=== PATIENT | female | born 1975 | race Caucasian/White ===

== ENCOUNTER 2023-09-11 16:52 | Observation (INO) | payer BC, SELFPAY ==
[2023-09-11] VITALS (7 sets, daily range): BP systolic 120–130; BP diastolic 76–85; PULSE 84–114; RESP 13–21; TEMP 36.6–36.8; O2SAT 96–97; BMI 57.1
--- NOTE | 2023-09-11 17:08 | PC.NURSE ---
Patient is a direct admit from [facility]. Upon arrival she was on a heparin drip. This facility continued the heparin drip until further orders from Dr. Juarez or other hospitalist. Dr. Juarez notified the patient was on the floor at 1656 and he instructed nurse to get an EKG. Patient's vitals WNL. She is resting comfortably with at bedside.
--- NOTE | 2023-09-11 17:12 | ECG_ITS ---
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 Interpretive Statements NAME OF STUDY: LEXISCAN SESTAMIBI STRESS TEST INDICATION: [NSTEMI, ] [id number]
--- NOTE | 2023-09-11 17:29 | PM.HP ---
Providers/Chief Complaint Admitting Physician: Elie Juarez MD Chief Complaint: chest pain and elevated treponins History of Present Illness Lanie Beth is a 48 year old female with no significant past medical history, who presents to [facility] due to complaints of chest pain, lightheadedness, dizziness, diaphoresis,. 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 Patient presented to [facility], in which they did a workup, EKG no acute ST-T wave changes, her troponin was 18, positive delta troponin she does report episode of chest discomfort while she was in emergency room Nitropatch was placed, her white blood cell count was 15,000, no acute source of infection was identified, she denies any dysuria, hematuria, no cough, they had done a CT of the head, no acute findings CTA head and neck given her complaints of headache, dizziness which was within normal limits. Her D-dimer was found to be above 8, Dr. Thomas from [facility] call me for transfer, for concerns for elevated troponin. I had requested that Dr. 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 Dr. Thomas had discussed with radiology patient had a CTA head and neck, which also picked up pulmonary arteries, there is no radiographic evidence of PE, however it was not a dedicated CT a of the chest. She was on room air, chest pain-free, normotensive, requested transfer to [facility] for cardiac evaluation. She tells me that she does have extensive family history of CAD in her father, no recent chest pain, she is morbidly obese, no smoking, no drug use, intermittent alcohol use, no calf pain, calf swelling, hemoptysis, received aspirin via ems Review of Systems Const: Reports: fatigue and malaise; Denies: fever(s) Card: Reports: chest pain Resp: Denies: dyspnea GI: Reports: abdominal pain : Denies: flank pain PFSH Acute PFSH: Medical History (Updated 09/11/23 @ 17:36 by Elie Juarez MD) History of use of contraceptive intrauterine device (IUD) Surgical History (Updated 09/11/23 @ 17:34 by Elie Juarez MD) History of cholecystectomy Family History (Updated 09/11/23 @ 17:34 by Elie Juarez MD) Father CAD (coronary artery disease) Social History (Updated 09/11/23 @ 17:34 by Elie Juarez MD) Smoking and tobacco/nicotine status: never used tobacco/nicotine Alcohol intake: current Alcohol intake frequency: few times a month Substance/Drug Use: never Physical Exam Const: COMMON NORMALS: no acute distress and patient oriented x3 HENMT: COMMON NORMALS: normocephalic HEAD & SCALP: normocephalic Eye: COMMON NORMALS: Equal, round and reactive pupils present Neck/C-Spine: COMMON NORMALS: no JVD Resp: COMMON NORMALS: normal respiratory effort, No retractions, No use of accessory muscles and clear to auscultation bilaterally AUSCULTATION: clear to auscultation bilaterally Cardio: COMMON NORMALS: no JVD, regular rate, regular rhythm, S1 normal heart sound present and S2 normal heart sound present RATE: regular rate RHYTHM: regular rhythm HEART SOUNDS: S1 normal heart sound present and S2 normal heart sound present GI: COMMON NORMALS: Normal to inspection, nondistended, normoactive bowel sounds present, Soft to palpation and non-tender Extremity: COMMON NORMALS: no calf tenderness and no pedal edema Neuro: COMMON NORMALS: patient oriented x3, CN's II-XII intact bilaterally and moves all extremities Psych: COMMON NORMALS: mental status grossly normal A&P Assessment and plan (1) NSTEMI (non-ST elevated myocardial infarction): (2) Leukocytosis: (3) Chest pain: (4) Pre-syncope: Plan Chest pain ? NSTEMI ? Plan ? Aspirin ? Statin ? Continue heparin drip ? Repeat troponin series, telemetry monitoring ? Cardiac echo -N.p.o. midnight, for stress test tomorrow ? 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 Repeat UA, Inflammatory markers Presyncope, Monitor closely Attestations Medical Necessity Statement*: Patient requires hospitalization, outpatient observation, for chest pain, presyncope, leukocytosis, NSTEMI Diagnoses NSTEMI (non-ST elevated myocardial infarction) I21.4 Leukocytosis D72.829 Chest pain R07.9 Pre-syncope R55
--- NOTE | 2023-09-11 17:33 | PC.NURSE ---
Per Dr. Juarez, patient to be moved to a room where can comfortably spend the night. Patient moved to [facility]2 and can use vacant bed.
[2023-09-11] MEDS: morphine 4 mg/mL SDV 1 mL 2 MG IVP ×2 (17:38→22:14)
[2023-09-11] MEDS: pantoprazole 40 mg SDV IVP (17:38)
--- NOTE | 2023-09-11 18:10 | ECG_ITS ---
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 Measurements Intervals [place] Rate: 84 P: 44 CT: 144 QRS: 11 QRSD: 89 T: 31 QT: 378 QTc: 448 Interpretive Statements SINUS RHYTHM No previous ECG available for comparison Electronically Signed On 09-12-2023 9:21:55 CDT by Keaton Bellamy M.D. [id number]
[2023-09-11 18:27] LABS: Lactic Sepsis W/Reflex 1.1 mmol/L (0.5-2.2)
[2023-09-11 18:28] LABS: Troponin(5th) Baseline 12 ng/L (0-10)
[2023-09-11 18:32] LABS: D Dimer 11.83 ug/mLFEU (0-0.59)
[2023-09-11 18:38] LABS: NT Pro B Type Natriuretic Pept 114 pg/mL (0-125); Thyroid Stimulating Hormone 1.24 uIU/mL (0.27-4.20)
[2023-09-11 19:40] LABS: C Reactive Protein 8.1 mg/L (0.0-4.9)
[2023-09-11 19:56] LABS: Estmated Average Glucose 91; Hemoglobin A1C 4.8 % (4.0-6.0)
[2023-09-11] MEDS: atorvastatin 40 mg Tablet PO (20:43)
[2023-09-11 20:55] LABS: Troponin 5 2HR 9.85 ng/L (0-10)
[2023-09-11 20:56] LABS: Troponin 5 2HR Delta -2.15 ABS# (0-10)
[2023-09-11 21:40] LABS: Amphetamines Screen Urine Negative (Negative); Barbiturates Screen Urine Negative (Negative); Benzodiazepines Screen Urine Negative (Negative); Cocaine Screen Urine Negative (Negative); Opiate Screen Urine Positive (Negative); PCP Screen Urine Negative (Negative); THC Screen Urine Negative (Negative)
[2023-09-11 21:46] LABS: Add Urine Microscopic? YES; Bilirubin Urine Neg (Negative); Blood Urine Neg (Negative); Glucose Urine UA Norm (Normal); Ketones Urine 1+ (Negative); Leukocyte Esterase Urine Negative (Negative); Nitrate Urine Negative (Negative); Protein Urine Trace (Negative); RBC Urine 0-4 /hpf (0-2); Specific Gravity, Urine 1.025 (1.005-1.030); Urine Appearance Cloudy (CLEAR); Urine Color Dark Yellow (Yellow); Urobilinogen Urine Neg (Negative); WBC Urine 0-4 /hpf (0-5); pH Urine 5 (5-7)
[2023-09-11 21:47] LABS: Bacteria Urine 2+ /hpf; Mucus Urine TRACE /hpf
[2023-09-11] MEDS: cyclobenzaprine 10 mg Tablet 5 MG PO (22:19)
--- NOTE | 2023-09-11 23:12 | ECG_ITS ---
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 Measurements Intervals [place] Rate: 90 P: 55 IN: 148 QRS: 15 QRSD: 89 T: 23 QT: 366 QTc: 448 Interpretive Statements SINUS RHYTHM Compared to ECG 09/11/2023 18:10:17 No significant changes Electronically Signed On 09-12-2023 9:25:04 CDT by Keaton Bellamy M.D. [id number]
[2023-09-12 00:46] LABS: Troponin 5 6HR 8.48 ng/L (0-10); Troponin 5 6HR Delta -3.52 ng/L (0-12)
[2023-09-12 01:27] LABS: Basophils # 0.1 10^3/uL (0.0-0.1); Basophils % 0.9 %; Eosinophils # 0.5 10^3/uL (0.0-0.8); Eosinophils % 4.9 %; Hematocrit 44.7 % (36-47); Lymphocytes # 2.3 10^3/uL (0.8-4.8); Lymphocytes % 24.7 %; Mean Corpuscular HGB Conc 33.1 g/dL (30-55); Mean Corpuscular Hemoglobin 29.8 pg (27-33); Mean Corpuscular Volume 89.9 fl (85-98); Monocytes # 0.5 10^3/uL (0.2-0.9); Monocytes % 5.5 %; Neutrophils # 5.96 10^3/uL (1.8-7.7); Neutrophils % 63.8 %; Nucleated Red Blood Cells % 0 %; Platelet Count 187 10^3/cmm (157-399); Red Blood Count 4.97 10^6/uL (3.85-5.65); Red Cell Distribution Width 13.1 % (12.1-15.1); White Blood Count 9.33 10^3/uL (3.29-11.43)
[2023-09-12 01:44] LABS: Anion Gap 13.1 (5-19); Blood Urea Nitrogen 12 mg/dL (6-20); Calcium 8.1 mg/dL (8.5-10.5); Carbon Dioxide 22 mmol/L (22-29); Chloride 108 mmol/L (98-107); Creatinine Clr Calc Pharmacy 132.7031; Glomerular Filtration Rate 75.9 mL/min (90-130); Glucose 119 mg/dL (65-115); Magnesium 1.8 mg/dL (1.7-2.3); Osmolality Calculated 289 mOsm/kg (285-295); Phosphorus 3.1 mg/dL (2.5-4.5); Potassium 4.1 mmol/L (3.5-5.1); Sodium 139 mmol/L (136-145)
[2023-09-12 01:50] LABS: Partial Thromboplastin Time 108.4 SECONDS (23.9-36.7)
[2023-09-12] MEDS: heparin drip 25,000 UNIT/500 ML PREMIX 30 UNIT IV (02:00)
[2023-09-12 04:00] VITALS: BP 115/76; PULSE 93; RESP 15; TEMP 36.8; O2SAT 97
[2023-09-12 05:43] VITALS: PULSE 98
--- NOTE | 2023-09-12 06:00 | USCV_ITS ---
Lanie Beth Age: 48 Gender: F : 1975 Exam Date: 09/12/2023 08:53 Ordering Phys: Elie Juarez MD Technologist: [place] [facility] [place]: pos d-dimer cp PROCEDURES: The venous duplex Doppler examination of both lower extremities was performed in the standard fashion. The following venous structures were evaluated: common femoral vein, profunda vein, proximal portion of the greater saphenous vein, superficial femoral vein, and the popliteal vein. FINDINGS: Normal 2-D Doppler and augmentation and compressibility throughout the lower extremity venous structures. Additional imaging through the proximal calf veins also reveals no thrombus. Limited evaluation of the greater saphenous vein is patent with no thrombus. CONCLUSIONS No DVT bilateral lower extremities. Dr. Cheryl Avery DO (Electronically Signed) Final Date: 12 September 2023 13:31 S
--- NOTE | 2023-09-12 06:00 | USCV_ITS ---
Lanie Beth Age: 48 Gender: F : 1975 Exam Date: 09/12/2023 08:28 Ordering Phys: Elie Juarez MD Technologist: Exam Location: [facility] [place] Indication: nstemi BP: 115 / 76 HR: 119 Rhythm: Sinus Technical Quality: Adequate MEASUREMENTS (Male / Female) Normal Values 2D ECHO LV Diastolic Diameter PLAX 4.6 cm 4.2 - 5.9 / 3.9 - 5.3 cm IVS Diastolic Thickness 1.2 cm 0.6 - 1.0 / 0.6 - 0.9 cm IVS Systolic Thickness 1.6 cm LVPW Diastolic Thickness 1.4 cm 0.6 - 1.0 / 0.6 - 0.9 cm LVPW Systolic Thickness 1.6 cm LV Ejection Fraction 2D Teich 69.2 % LV Ejection Fraction MOD 4C 55.9 % LV Ejection Fraction MOD 2C 59.3 % LV Ejection Fraction 2C AL 57.0 % RA Systolic Volume 4C AL 33.0 ml RA Systolic Volume 4C MOD 31.4 ml IVC Diameter 1.5 cm M-MODE LA Ao Ratio MM 1.5 AV Cusp Separation MM 2.4 cm DOPPLER AV Peak Velocity 159.0 cm/s LVOT Peak Velocity 104.0 cm/s MV Peak Velocity 111.0 cm/s MV Area PHT 5.4 cm squared Mitral E to A Ratio 1.0 TV Peak Velocity 98.0 cm/s TR Peak Velocity 107.0 cm/s TR Peak Gradient 4.6 mmHg TV Peak E Velocity 95.0 cm/s Right Atrial Pressure 3.0 mmHg Pulmonary Artery Systolic Pressu 7.6 mmHg PV Peak Velocity 111.0 cm/s FINDINGS Left Ventricle Left ventricle is normal size. LV systolic function is normal with EF of 55 to 60%. No regional wall motion abnormalities are seen. Right Ventricle Normal in size and function Right Atrium Normal in size Left Atrium Normal in size Mitral Valve Structurally normal mitral valve. Mild mitral regurgitation. Aortic Valve Structurally normal aortic valve. No significant stenosis or regurgitation. Tricuspid Valve Insufficient TR jet to evaluate RVSP. Pulmonic Valve Not well visualized Pericardium Normal Aorta Normal in size IVC Appears to be normal CONCLUSIONS LV systolic function is normal with EF of 55-60% Mild mitral regurgitation No comparison studies are available. Ralph Edgar MD (Electronically Signed) Final Date: 12 September 2023 16:40 S
--- NOTE | 2023-09-12 07:18 | PC.NURSE ---
still in Stress test dept
[2023-09-12] MEDS: regadenoson 0.4 Mg/5 ml Syringe IVP (07:28)
[2023-09-12 07:40] VITALS: BP 154/83; PULSE 92
[2023-09-12 08:00] VITALS: BP 147/84; PULSE 86; RESP 16; TEMP 36.8; O2SAT 94
[2023-09-12] MEDS: aspirin 81 mg EC Tablet PO (08:57)
[2023-09-12 09:07] LABS: Partial Thromboplastin Time 95.3 SECONDS (23.9-36.7)
[2023-09-12] MEDS: TRAMadol 50 mg Tablet PO (10:02)
--- NOTE | 2023-09-12 11:14 | CT_ITS ---
WS: [id number] CT CHEST ANGIOGRAPHY WITH REFORMATS HISTORY: elevated d dimer TECHNIQUE: Contiguous axial images are obtained through the chest during arterial injection of intrav enous contrast. Images are reconstructed to evaluate the pulmonary arteries. MIP imaging also reviewe d. All CT scans at [facility] use at least one of these dose optimization techniques: automat ed exposure control; mA and/or kV adjustment per patient size (includes targeted exams where dose is matched to clinical indication); or iterative reconstruction. CONTRAST: Omnipaque 350; 100 mL IV. DLP: 558.86 mGy.cm COMPARISON: None available. No pulmonary emboli identified. The distal branches of the pulmonary arteries are becoming more diffi cult to visualized. No central pulmonary emboli. No RIGHT heart strain. Normal size thoracic aorta. Mild enlargement of the LEFT heart chambers. No pericardial or pleural effusions. Mild hazy attenuati on throughout both lungs from poor inspiration. No pneumonia. No lymphadenopathy. No hiatal hernia. Hepatic steatosis in the visualized liver. No adrenal mass. Prior cholecystectomy. Surgical sutures a ssociated the stomach may be related to a prior bypass. Mild increase in thoracic kyphosis. CT/CT angio chest PE protcl [id number] IMPRESSION: 1. No pulmonary embolism. 2. No pneumonia. 3. Mild LEFT heart enlargement. 4. Prior cholecystectomy.
[2023-09-12 12:00] VITALS: PULSE 80
[2023-09-12] MEDS: iohexol 350 mg/mL 500 mL Btl (per mL) IV (12:15)
[2023-09-12] MEDS: sodium chloride 0.9% 1,000 ML 75 ML IV (12:23)
--- NOTE | 2023-09-12 12:35 | XRR_ITS ---
PROCEDURE INFORMATION: Exam: XR Left Shoulder Exam date and time: 09/12/2023 12:53 PM Age: 48 years old Clinical indication: Pain; Shoulder; Left; Additional info: L shoulder TECHNIQUE: Imaging protocol: Radiologic exam of the left shoulder. Views: 2 or more views. COMPARISON: CT angio chest PE protcl [id number] 09/12/2023 12:12 PM FINDINGS: Bones/joints: Moderate degenerative changes of the left acromioclavicular joint. Mild osteoarthritis of the left glenohumeral joint. No acute fracture, dislocation, or aggressive osseous lesion. Soft tissues: Visualized chest is unremarkable. No acute soft tissue findings. XR/XR shoulder LT min 2V* [id number] IMPRESSION: Mild osteoarthritis without acute skeletal pathology.
--- NOTE | 2023-09-12 12:42 | P.DS_ITS ---
Discharge Providers Date of Admission: 09/11/23 16:52 Date of Discharge: September 12, 2023 Attending Provider at Admission: Elie Juarez MD Attending Provider at Discharge: Elie Juarez MD Diagnoses at Discharge Discharge Diagnosis (1) NSTEMI (non-ST elevated myocardial infarction): Status: Acute (2) Leukocytosis: Status: Acute (3) Chest pain: Status: Acute (4) Pre-syncope: Status: Acute Reason for Visit Reason for Visit: chest pain and elevated [facility] Course Hospital Course Lanie Beth is a 48 year old female with no significant past medical history, who presents to [facility] due to complaints of chest pain, lightheadedness, dizziness, diaphoresis,. 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 Patient presented to [facility], in which they did a workup, EKG no acute ST-T wave changes, her troponin was 18, positive delta troponin she does report episode of chest discomfort while she was in emergency room Nitropatch was placed, her white blood cell count was 15,000, no acute source of infection was identified, she denies any dysuria, hematuria, no cough, they had done a CT of the head, no acute findings CTA head and neck given her complaints of headache, dizziness which was within normal limits. Her D-dimer was found to be above 8, Dr. Thomas from [facility] call me for transfer, for concerns for elevated troponin. I had requested that Dr. 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 Dr. Thomas had discussed with radiology patient had a CTA head and neck, which also picked up pulmonary arteries, there is no radiographic evidence of PE, however it was not a dedicated CT a of the chest. She was on room air, chest pain-free, normotensive, requested transfer to [facility] for cardiac evaluation. She tells me that she does have extensive family history of CAD in her father, no recent chest pain, she is morbidly obese, no smoking, no drug use, intermittent alcohol use, no calf pain, calf swelling, hemoptysis, received aspirin via ems Patient was admitted to [facility] for chest pain, no acute ST-T wave changes, no significant delta troponin stress test IMPRESSIONS 1. Small area of prior infarct seen in RCA territory. 2. LV systolic function is normal Ralph Edgar MD (Electronically Signed) Final Date: 12 September 2023 ? [address] angiogram was negative for PE -Discharged with a close follow-up with primary care provider as outpatient discharged on aspirin, statin, discussed weight loss, nitro as needed for chest pain, if any recurrent chest pain go to the emergency room Patient was found to have a thyroid nodule, needs to follow-up with ENT as outpatient Patient was found to have elevated blood pressures discharged on lisinopril for afterload reducing agent, follow-up with primary care provider as outpatient For her left shoulder pain, discharged on steroids, avoid NSAIDs given her history of gastric sleeve For her epigastric discomfort history of gastric sleeve history of NSAID use, discharged on Protonix, Carafate, follow-up with primary care provider as outpatient - You have a thyroid nodule you have a thyroid nodule, please follow-up with primary care provider for referral to ENT for biopsy -Discharged on lisinopril 5 mg daily, due to elevated blood pressure please follow-up with primary care provider for your blood pressure -Please continue aspirin, statin -Please follow-up with primary care provider for recheck blood pressure, heart rate, -For your left shoulder, please follow-up with your primary care provider take prednisone as prescribed -Please avoid ibuprofen or meloxicam or naproxen or any other NSAID -Please use prednisone for your shoulder pain but only short-term -Please follow-up with your primary care provider for further interventions for her shoulder pain -Continue Protonix, Carafate, for your epigastric discomfort, if you continue to have epigastric this comfort beyond a month discussed with primary care provider for considering EGD to look for gastric ulcers Physical Exam Const: COMMON NORMALS: no acute distress and patient oriented x3 Resp: COMMON NORMALS: normal respiratory effort, No retractions, No use of accessory muscles and clear to auscultation bilaterally AUSCULTATION: clear to auscultation bilaterally Cardio: COMMON NORMALS: regular rate, regular rhythm, S1 normal heart sound present and S2 normal heart sound present RATE: regular rate RHYTHM: regular rhythm HEART SOUNDS: S1 normal heart sound present and S2 normal heart sound present GI: COMMON NORMALS: Normal to inspection, nondistended, normoactive bowel sounds present and non-tender Extremity: COMMON NORMALS: no pedal edema Neuro: COMMON NORMALS: patient oriented x3 Psych: COMMON NORMALS: mental status grossly normal Discharge Data Studies Completed and Pending Completed Studies During Hospitalization Category Date Time Status CT angio chest PE protcl [id number] Stat Cat Scan 09/12/23 11:14 Completed Sestamibi Stress Test Request Routine Exams 09/11/23 17:12 Draft NM dafne perf SPECT r/s* [id number] Routine Nuc Med 09/12/23 17:12 Completed Pending at discharge Category Date Time Status XR shoulder LT min 2V* [id number] Stat Exams 09/12/23 12:35 [place] [id number] Routine Ultrasound 09/12/23 06:00 Taken CV. echo complete* [id number] Routine Ultrasound 09/12/23 06:00 Taken Radiology Impressions Chest CTA 09/12/23 11:14 IMPRESSION: 1. No pulmonary embolism. 2. No pneumonia. 3. Mild LEFT heart enlargement. 4. Prior cholecystectomy. Laboratory Results WBC 9.33 10^3/uL (3.29-11.43) 09/12/23 01:22 RBC 4.97 10^6/uL (3.85-5.65) 09/12/23 01:22 Hgb 14.80 g/dL (11.27-16.99) 09/12/23 01: Hct 44.7 % (36-47) 09/12/23 01:22 MCV 89.9 fl (85-98) 09/12/23 01:22 MCH 29.8 pg (27-33) 09/12/23 01: MCHC 33.1 g/dL (30-55) 09/12/23 01:22 RDW 13.1 % (12.1-15.1) 09/12/23 01:22 Plt Count 187 10^3/cmm (157-399) 09/12/23 01:22 MPV 10.0 fL (7.4-10.4) 09/12/23 01:22 Neut % (Auto) 63.8 % 09/12/23 01:22 Lymph % (Auto) 24.7 % 09/12/23 01:22 [place] % (Auto) 5.5 % 09/12/23 01:22 Eos % (Auto) 4.9 % 09/12/23 01:22 Baso % (Auto) 0.9 % 09/12/23 01:22 Neut # (Auto) 5.96 10^3/uL (1.8-7.7) 09/12/23 01:22 Lymph # (Auto) 2.3 10^3/uL (0.8-4.8) 09/12/23 01:22 [place] # (Auto) 0.5 10^3/uL (0.2-0.9) 09/12/23 01:22 Eos # (Auto) 0.5 10^3/uL (0.0-0.8) 09/12/23 01:22 Baso # (Auto) 0.1 10^3/uL (0.0-0.1) 09/12/23 01:22 Nucleated RBC % (auto) 0 % 09/12/23 01:22 Nucleated RBCs # 0.0 /100WBC 09/12/23 01:22 APTT 95.3 SECONDS (23.9-36.7) H 09/12/23 08:36 D-Dimer 11.83 ug/mLFEU (0-0.59) H 09/11/23 17:58 Sodium 139 mmol/L (136-145) 09/12/23 01:22 Potassium 4.1 mmol/L (3.5-5.1) 09/12/23 01:22 Chloride 108 mmol/L (98-107) H 09/12/23 01:22 Carbon Dioxide 22 mmol/L (22-29) 09/12/23 01:22 Anion Gap 13.1 (5-19) 09/12/23 01:22 BUN 12 mg/dL (6-20) 09/12/23 01:22 Creatinine 0.8 mg/dL (0.5-0.9) 09/12/23 01:22 GFR Calculation 75.9 mL/min (90-130) L 09/12/23 01:22 Glucose 119 mg/dL (65-115) H 09/12/23 01:22 Estimat Average Glucose 91 09/11/23 17:58 Hemoglobin A1c 4.8 % (4.0-6.0) 09/11/23 17:58 Calculated Osmolality 289 mOsm/kg (285-295) 09/12/23 01:22 Lactic Acid 1.1 mmol/L (0.5-2.2) 09/11/23 17:58 Calcium 8.1 mg/dL (8.5-10.5) L 09/12/23 01:22 Phosphorus 3.1 mg/dL (2.5-4.5) 09/12/23 01:22 Magnesium 1.8 mg/dL (1.7-2.3) 09/12/23 01:22 Troponin T Baseline 12 ng/L (0-10) H 09/11/23 17:58 Troponin T 120 Minute 9.85 ng/L (0-10) 09/11/23 20:13 Delta Troponin T -2.15 ABS# (0-10) L 09/11/23 20:13 Troponin T Hi Sens 6Hr 8.48 ng/L (0-10) 09/12/23 00:00 Troponin T Hi Sens 6Hr Delta -3.52 ng/L (0-12) L 09/12/23 00:00 C-Reactive Protein 8.1 mg/L (0.0-4.9) H 09/11/23 17:58 NT-Pro-B Natriuret Pep 114 pg/mL (0-125) 09/11/23 17:58 TSH 1.24 uIU/mL (0.27-4.20) 09/11/23 17:58 Ser , Semi-Qnt 1.00 mIU/mL 09/11/23 17:58 Urine Color Dark yellow (Yellow) A 09/11/23 21:08 Urine Appearance Cloudy (CLEAR) A 09/11/23 21:08 Urine pH 5 (5-7) 09/11/23 21:08 Ur Specific [place] 1.025 (1.005-1.030) 09/11/23 21:08 Urine Protein Trace (Negative) 09/11/23 21:08 Urine Glucose (UA) Norm (Normal) 09/11/23 21:08 Urine Ketones 1+ (Negative) H 09/11/23 21:08 Urine Blood Neg (Negative) 09/11/23 21:08 Urine Nitrate Negative (Negative) 09/11/23 21:08 Urine Bilirubin Neg (Negative) 09/11/23 21:08 Urine Urobilinogen Neg mg/dL (Negative) 09/11/23 21:08 Ur Leukocyte Esterase Negative (Negative) 09/11/23 21:08 Urine RBC 0-4 /hpf (0-2) H 09/11/23 21:08 Urine WBC 0-4 /hpf (0-5) H 09/11/23 21:08 Ur Squamous Epith Cells 10-15 /hpf (0-5) H 09/11/23 21:08 Amorphous Sediment Not Reportable 09/11/23 21:08 Urine Bacteria 2+ /hpf (NONE) H 09/11/23 21:08 Urine Mucus Trace /hpf 09/11/23 21:08 Urine Opiates Screen Positive ng/mL (Negative) H 09/11/23 21:08 Ur Barbiturates Screen Negative ng/mL (Negative) 09/11/23 21:08 Ur Phencyclidine Scrn Negative ng/mL (Negative) 09/11/23 21:08 Ur Amphetamines Screen Negative ng/mL (Negative) 09/11/23 21:08 U Benzodiazepines Scrn Negative ng/mL (Negative) 09/11/23 21:08 Urine Cocaine Screen Negative ng/mL (Negative) 09/11/23 21:08 U Marijuana (THC) Screen Negative ng/mL (Negative) 09/11/23 21:08 Vitals Last Vital Signs Temp 98.2 F 09/12/23 08:00 Pulse 86 09/12/23 08:00 Resp 16 09/12/23 08:00 BP 147/84 09/12/23 08:00 Pulse Ox 94 09/12/23 08:00 O2 Del Method Room Air 09/12/23 08:00 Discharge Plan Discharge Patient Disposition: Home Condition: Stable Prescriptions: New pantoprazole [Protonix] 40 mg tablet,delayed release (DR/EC) 40 mg PO BID 30 Days Qty: 60 0RF prednisone 20 mg tablet 20 mg PO BID 5 Days Qty: 10 0RF lisinopril 10 mg tablet 5 mg PO DAILY 30 Days Qty: 15 0RF nitroglycerin 0.4 mg Tablet, Sublingual 0.4 mg sublingual Q5M PRN (Reason: Chest Pain) 30 Days Qty: 30 0RF sucralfate [Carafate] 100 mg/mL suspension 1 g PO BID 28 Days Qty: 560 0RF Continued aspirin 81 mg Capsule 81 mg PO DAILY phenazopyridine 95 mg Tablet See Rx Instructions .ROUTE .COMPLEX Rx Instructions: 95mg daily vitamin B complex Capsule 1 cap PO DAILY omega-3 acid ethyl esters 1 gram Capsule 1 cap PO DAILY calcium carbonate-vitamin D3 250 mg-3.125 mcg (125 unit) Tablet 1 tab PO DAILY biotin 1 mg Capsule 1 mg PO DAILY biotin 1 mg Capsule 1 mg PO DAILY multivitamin Tablet 1 tab PO QAM Discontinued omeprazole 20 mg Capsule,Delayed Release(Dr/Ec) 20 mg PO DAILY Discharge Orders: Discharge Order (Routine); Ordered 09/12/23 Ordered By: Elie Juarez Discharge Diet: Cardiac Discharge Activity: Resume usual activity Patient Instructions: Nitroglycerin (By mouth), Sucralfate (By mouth) (Carafate), Prednisone (By mouth), Pantoprazole (By mouth) (Protonix), Chest Pain (DC), Leukocytosis (DC), Near Syncope (DC), Chest Pain Stoplight, Opioid Safety Activity Restrictions/Additional Instructions: - You have a thyroid nodule you have a thyroid nodule, please follow-up with primary care provider for referral to ENT for biopsy -Discharged on lisinopril 5 mg daily, due to elevated blood pressure please follow-up with primary care provider for your blood pressure -Please continue aspirin, statin -Please follow-up with primary care provider for recheck blood pressure, heart rate, -For your left shoulder, please follow-up with your primary care provider take prednisone as prescribed -Please avoid ibuprofen or meloxicam or naproxen or any other NSAID -Please use prednisone for your shoulder pain but only short-term -Please follow-up with your primary care provider for further interventions for her shoulder pain -Continue Protonix, Carafate, for your epigastric discomfort, if you continue to have epigastric this comfort beyond a month discussed with primary care provider for considering EGD to look for gastric ulcers Stand Alone Forms: Work/School Release Discharge Attestations Time Spent in Discharge Care*: greater than 30 min Quality Metrics Clinical Quality Measures [ No reported AMI, CVA or VTE this stay] Coding Level of Care Code Acute Code for Chg Fwd Diagnoses NSTEMI (non-ST elevated myocardial infarction) I21.4 Leukocytosis D72.829 Chest pain R07.9 Pre-syncope R55
[2023-09-12] MEDS: methylPREDNISolone sod succ 125 mg/2 mL INJ IVP (14:32)
--- NOTE | 2023-09-12 15:14 | PC.NURSE ---
shift note pt reports of chronic shoulder pain on left side. notified dr Juarez during his floor rounding. he stated he will put an order or some imaging and order a pain medication.
--- NOTE | 2023-09-12 15:18 | PC.NURSE ---
pt requested us to send her new Rx to [facility] as meds to bed
[2023-09-12 15:44] VITALS: BP 150/83; PULSE 83; RESP 25; TEMP 36.7; O2SAT 96
--- NOTE | 2023-09-12 17:12 | NMCV_ITS ---
NM dafne perf SPECT r/s* [id number] Lanie Beth Age: 48 Gender: F : 1975 Exam Date: 09/12/2023 06:37 Ordering Phys: Elie Juarez MD Technologist: PRISCILA Alves Exam Location: [facility] Indications: NSTEMI STRESS TEST [facility] IMAGE PROTOCOL Rest/Stress 1 Lexiscan Day Radiopharmaceutical Dose (mCi) Administration Site Administered by Rest: Tc-99m 11.0 IV PRISCILA Alves Sestamibi Stress:Tc-99m 33.0 IV PRISCILA Alves Sestamibi Rest: 12-Sep-2023 60 Discovery 630 Stress: 12-Sep-2023 30 Discovery 630 0.4mg Lexiscan. Supine position only as patient was unable to lay prone. SPECT RESULTS Technical Quality: Good Raw Data Analysis: Breast attenuation, Soft tissue attenuation, obesity Image Corrections: No attenuation or motion correction applied Summed Stress Score: 2 Summed Rest Score: 8 Summed Difference Score: 0 PERFUSION FINDINGS Small area of fixed perfusion defect seen in the inferior wall. This is consistent with small area of prior infarct seen in the RCA territory. FUNCTIONAL RESULTS (calculated via Gated SPECT) Stress Image LV EF (%): 68 Stress EDV (mL):98 TID: 0.97 Stress ESV (mL):31 FUNCTIONAL FINDINGS: There is normal left ventricular systolic function. IMPRESSIONS 1. Small area of prior infarct seen in RCA territory. 2. LV systolic function is normal Ralph Edgar MD (Electronically Signed) Final Date: 12 September 2023 09:16 S
--- NOTE | 2023-09-12 17:28 | PC.NURSE ---
notified dr prieto that pt mention about starting her on atorvastatin.
--- NOTE | 2023-09-12 17:38 | PC.NURSE ---
Discharge Note Patient discharged to home via private vehicle accompanied by . 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 Mobile pharmacy medications and/or prescriptions provided. Belongings/home medications returned.
== END 2023-09-12 16:27 | disposition home or self-care (01) ==
PROVIDERS: Admitting Provider Family Medicine; Visit Provider Family Medicine
DX: I21.4 Non-ST elevation (NSTEMI) myocardial infarction (principal); D72.829 Elevated white blood cell count, unspecified; R55 Syncope and collapse; Z82.49 Family history of ischemic heart disease and other diseases of the circulatory system; R79.89 Other specified abnormal findings of blood chemistry
CPT/HCPCS: 36415; 71275; 73030; 78452; 80048; 80306; 81001; 83036; 83605; 83735; 83880; 84100; 84443; 84484; 84702; 85025; 85378; 85730; 86140; 93005; 93017; 93306; 93970; 94664; 96375; 96376; A9270; A9500; G0378; G0379; J1644; J2270; J2470; J2785; J2919; J7030; Q9967